=== PATIENT | male | born 2000 | race Caucasian/White ===

== ENCOUNTER 2022-06-21 11:54 | Emergency (ER) | payer OTHER ==
[~2022-06-21] VITALS: Ht 162.6 cm; Wt 52.6 kg
[2022-06-21 12:18] VITALS: BP 142/82
--- NOTE | 2022-06-21 12:25 | NUR ---
22 y/o male bib self from home, pt states he has bump on base of penis that developed 1 week ago and has now grown larger in size after having unprotected sex 2 weeks ago. denies dysuria, hematuria or penile discharge. denies pain 0/10 at this time. pmh: denies nka
--- NOTE | 2022-06-21 15:05 | NUR ---
Patient discharged with v/s stable. Written and verbal after care instructions given and explained. Patient verbalized understanding. Ambulatory with steady gait. All questions addressed prior to discharge. Advised to follow up with PMD.
== END 2022-06-21 15:05 | disposition home or self-care (01) ==
LOC: MED 11:54
DX: N48.89 Other specified disorders of penis (principal)
CPT/HCPCS: 36415; 81002; 86592; 87491; 87529; 99283